=== PATIENT | female | born 1965 | race Caucasian/White ===

== ENCOUNTER 2018-04-13 06:39 | Day surgery (SDC) | payer MEDICAID ==
[2018-04-13] VITALS (7 sets, daily range): BP systolic 100–116; BP diastolic 59–75
[~2018-04-13] VITALS: Ht 156.2 cm; Wt 78.0 kg
[~2018-04-13 06:39] MED LIST: ALBU18HF2 INH; ATEN50TA PO; CYCL-1 PO; DOCUMENT DATE & TIME OF BETA-BLOCKER PO ONE; ERGO500014 PO; FLUT100D2 INH; GABA-532 PO; IBUP-1986 PO; LORA10TA7 PO; MINO100C66 PO; NORT25CA5 PO; OMEP20CA10 PO; QUET50TA PO; SERT100T PO; SIMV80TA2 PO; TRAZ-219 PO; albuterol 2.5 MG/3 ML nebule NEB ONE; ceFAZolin 1GM/D5W- ADD-VANTAGE 50 ML IV ONE; famotidine 20mg tablet PO ONE; ringers solution, lacted 1,000 ML IV SCH
[2018-04-13] MEDS ORDERED: LIDOcaine 1% (10mg/ml) 2ml vial ONE (07:48)
[2018-04-13 08:47] LABS: BASOPHILS # (AUTO) 0.1 X10'3 (0-0.2); EOSINOPHILS # (AUTO) 0.2 X10'3 (0-0.9); EOSINOPHILS % (AUTO) 3.3 % (0-6); LYMPHOCYTES # (AUTO) 1.9 X10'3 (1.1-4.8); LYMPHOCYTES % (AUTO) 29.4 % (21-51); MEAN CORPUSCULAR HEMOGLOBIN 29.4 PG (27.0-31.0); MEAN CORPUSCULAR HGB CONC 34.5 % (33.0-36.5); MEAN CORPUSCULAR VOLUME 85.2 FL (78-98); MEAN PLATELET VOLUME 9.5 FL (7.4-10.4); MONOCYTES # (AUTO) 0.4 X10'3 (0-0.9); MONOCYTES % (AUTO) 5.6 % (2-12); NEUTROPHILS # (AUTO) 3.9 X10'3 (1.8-7.7); NEUTROPHILS % (AUTO) 60.7 % (42-75); PRE OP HEMATOCRIT 38.7 % (35.0-45.0); PRE OP HEMOGLOBIN 13.3 g/dL (12.0-16.0); PRE OP PLATELET COUNT 198 X10'3 (140-440); RED BLOOD COUNT 4.54 X10'6 (4.20-5.60); RED CELL DISTRIBUTION WIDTH 15.1 % (11.5-14.5)
[2018-04-13 09:01] LABS: ALBUMIN 3.3 G/DL (3.4-5.0); ALBUMIN/GLOBULIN RATIO 0.9 (1.1-1.5); ALKALINE PHOSPHATASE 160 IU/L (46-116); BLOOD UREA NITROGEN 13 MG/DL (7-18); BUN/CREATININE RATIO 13.5 (6.6-38.0); CALCIUM 9.7 MG/DL (8.5-10.1); CHLORIDE 104 MMOL/L (99-107); CREATININE 0.96 MG/DL (0.40-0.90); PRE OP ALT 38 U/L (30-65); PRE OP ANION GAP 8 (8-16); PRE OP AST 30 U/L (10-37); PRE OP BILIRUB, TOTAL 0.3 MG/DL (0.0-1.0); PRE OP GLUCOSE 95 MG/DL (70-104); PRE OP POTASSIUM 4.2 MMOL/L (3.4-5.1); PRE OP SODIUM 138 MMOL/L (135-145); TOTAL CARBON DIOXIDE 26.4 MMOL/L (24-32); TOTAL PROTEIN 6.9 G/DL (6.4-8.2); eGFR 61 ML/MIN
[2018-04-13] MEDS ORDERED: LIDOcaine 0.5% (5mg/ml) 50ml vial ONE (10:05)
[2018-04-13] MEDS ORDERED: midazolam 2 mg/2 ml injection ONE (10:09)
[2018-04-13] MEDS ORDERED: fentaNYL/PF 50MCG/1 ML 2ML syringe ONE (10:09)
[2018-04-13] MEDS ORDERED: ringers solution, lacted 1,000 ML IV SCH (10:11)
[2018-04-13] MEDS ORDERED: proCHLORperazine 10 MG/2 ml inj IV PRN (10:15)
[2018-04-13] MEDS ORDERED: ondansetron/PF 4mg/2ml inj IV PRN (10:15)
[2018-04-13] MEDS ORDERED: morphine 4 MG/ML inj SYRINge IV PRN ×2 (10:15)
[2018-04-13] MEDS ORDERED: meperidine/PF 25mg/ml syringe IV PRN ×3 (10:15)
[2018-04-13] MEDS ORDERED: BUPIVAcaine/PF 2.5mg/ml (0.25%) 10ml vial ONE (10:17)
== END 2018-04-13 11:31 | disposition home or self-care (01) ==
LOC: PAS 06:39
PROVIDERS: ATTEND Orthopaedic Surgery Hand Surgery
DX: M65.341 Trigger finger, right ring finger (principal); K21.9 Gastro-esophageal reflux disease without esophagitis; G43.909 Migraine, unspecified, not intractable, without status migrainosus; G89.29 Other chronic pain; E78.00 Pure hypercholesterolemia, unspecified; J44.9 Chronic obstructive pulmonary disease, unspecified; F17.210 Nicotine dependence, cigarettes, uncomplicated; Z88.8 Allergy status to other drugs, medicaments and biological substances; Z98.890 Other specified postprocedural states
CPT/HCPCS: 26055; 36415; 80053; 85025; 93005; 94640; A6222; A6449; J0690; J2001; J2250; J3010; J3490; J7120

== ENCOUNTER 2025-03-11 18:54 | Emergency (ER) | payer MEDICAID ==
[~2025-03-11 18:54] MED LIST changes: -DOCUMENT DATE & TIME OF BETA-BLOCKER PO ONE; -OMEP20CA10 PO; +OMEP20CA15 PO; -TRAZ-219 PO; +TRAZ-256 PO; -albuterol 2.5 MG/3 ML nebule NEB ONE; -ceFAZolin 1GM/D5W- ADD-VANTAGE 50 ML IV ONE; -famotidine 20mg tablet PO ONE; -ringers solution, lacted 1,000 ML IV SCH
--- NOTE | 2025-03-11 19:51 | RADIOLOGY REPORT ---
EXAM: DI KNEE, COMP 4 VW MIN INDICATION: KNEE PAIN TECHNIQUE: 3 views of the right knee COMPARISON: None FINDINGS/IMPRESSION: No radiographic evidence of an acute osseous abnormality. There is no acute fracture, osseous malalignment, or aggressive focal osseous lesion. No knee joint effusion. Quadriceps insertional enthesophyte. Diffusely decreased bone mineral density.
--- NOTE | 2025-03-11 19:51 | RADIOLOGY REPORT ---
EXAM: DI HIP UNILATERAL 2 VIEWS INDICATION: HIP PAIN TECHNIQUE: 3 views of the left hip COMPARISON: None FINDINGS/IMPRESSION: No radiographic evidence of an acute osseous abnormality. There is no acute fracture, osseous malalignment, or aggressive focal osseous lesion. Mild bilateral superior medial hip joint space loss. Phleboliths in the pelvis.
--- NOTE | 2025-03-11 20:05 | Physician Documentation ---
History of Present Illness ~ Chief Complaint: Mechanical Fall Stated Complaint: WEAKNESS/LEG PAIN Time Seen by MD: 19:49 Primary Medical Doctor: [facility] Patient is seen today with complaints of pain of her left hip and left knee after sustaining a ground level fall in the ER lobby. Patient denies tripping and states her legs just buckled and she fell down. She denies any wrist pain or pain of her upper extremities. She has no other concern or complaint at this time Medication Reconciliation Allergies: Coded Allergies: hydrocodone bit (Verified Allergy, Intermediate, THROAT SWELLING, 01/17/10) Scheduled Albuterol Sulfate (Ventolin Hfa), 2 PUFFS INH Q4HPRN, (Reported) Atenolol (Atenolol), 1 TAB PO DAILY, (Reported) Ergocalciferol* (Vitamin D*), 1 CAP PO 2 WEEK, (Reported) Fluticasone Propionate (Flovent 100 Mcg Diskus), 1 PUFFS INH Q12H, (Reported) Gabapentin (Gabapentin), 1 CAP PO TID, (Reported) Loratadine (Loratadine), 1 TAB PO DAILY, (Reported) Minocycline Hcl (MINOCIN capsule), 100 MG PO HS, (Reported) Nortriptyline Hcl (Pamelor), 50 MG PO BID, (Reported) Omeprazole (Omeprazole), 2 CAP PO BID, (Reported) Quetiapine Fumarate (Seroquel), 1 TAB PO HS, (Reported) Sertraline Hcl (Zoloft), 1 TAB PO DAILY, (Reported) Simvastatin* (Zocor*), 1 TAB PO HS, (Reported) Trazodone HCl (Trazodone HCl), 1 TAB PO HS, (Reported) Scheduled PRN Cyclobenzaprine* (Cyclobenzaprine*), 1 TABLET PO TID PRN for muscle spasms, (Reported) Ibuprofen (Ibuprofen), 1 TAB PO Q8H PRN for pain, (Reported) Past Medical History Past Medical History: High Cholesterol, GERD Alcohol Use: None Drug Use: none Lives with: Spouse Lives In: Home Occupation: employed Physical Exam Vital Signs: Temperature: 97.9, Heart Rate: 67, Respiratory Rate: 16, BP: 164/77, Pulse Oximetry: 97 Oxygen Flow Rate: 0 Physical Exam General: Awake and Alert, no acute distress. HEENT: Conjunctiva pink, Sclera clear, Mucus Membranes moist. Neck: Supple without masses and tenderness. Resp: Unlabored. Lungs clear to auscultation bilaterally. Heart: Regular Rate and rhythm, normal S1 and S2 without murmur, rub or gallop. Musculoskeletal: Patient on exam has decreased range of motion of the left hip and knee due to pain. Patient is neurovascularly intact distally. Motor function intact distally. Extremities: No cyanosis,clubbing or edema. Skin: Warm and Dry. 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 X-ray of the left knee interpreted by myself today shows no sign of acute fracture, bones in anatomic alignment, joint space is well-maintained. DIAGNOSTIC RADIOLOGY Patient: SALENA PIERSON Medical Record: [id number] [facility] : 1965, Age: 59 Sex: Female Location: ER Patient Status: REG ER Service Date/Time: 03/11/251932 Ordering Physician: MIKHAIL SIFUENTES MD Exam: KNEE, COMP 4 VW MIN EXAM: DI KNEE, COMP 4 VW MIN INDICATION: KNEE PAIN TECHNIQUE: 3 views of the right knee COMPARISON: None FINDINGS/IMPRESSION: No radiographic evidence of an acute osseous abnormality. There is no acute fracture, osseous malalignment, or aggressive focal osseous lesion. No knee joint effusion. Quadriceps insertional enthesophyte. Diffusely decreased bone mineral density. Electronically Signed by:ALYSIA CHAUDHRY MD Date & Time: 03/11/251948 Dictated by: ALYSIA CHADUHRY MD Dictation date and time: 03/11/251924 Primary Care Provider: NO PRIMARY CARE PROVIDER cc: MIKHAIL SIFUENTES MD ~ DIAGNOSTIC RADIOLOGY Patient: SALENA PIERSON Medical Record: [id number] [facility] : 1965, Age: 59 Sex: Female Location: ER Patient Status: [facility] ER Service Date/Time: 03/11/251932 Ordering Physician: MIKHAIL SIFUENTES MD Exam: HIP UNILATERAL 2 VIEWS EXAM: DI HIP UNILATERAL 2 VIEWS INDICATION: HIP PAIN TECHNIQUE: 3 views of the left hip COMPARISON: None FINDINGS/IMPRESSION: No radiographic evidence of an acute osseous abnormality. There is no acute fracture, osseous malalignment, or aggressive focal osseous lesion. Mild bilateral superior medial hip joint space loss. Phleboliths in the pelvis. Electronically Signed by:ALYSIA CHAUDHRY MD Date & Time: 03/11/251947 Dictated by: ALYSIA CHAUDHRY MD Dictation date and time: 03/11/251924 Primary Care Provider: NO PRIMARY CARE PROVIDER cc: MIKHAIL SIFUENTES MD ~ Medical Decision Making Findings Patient is seen today with complaints of pain of her left hip and left knee after sustaining a ground level fall in the ER lobby. Patient denies tripping and states her legs just buckled and she fell down. She denies any wrist pain or pain of her upper extremities. She has no other concern or complaint at this time Patient did have x-rays taken of left hip and left knee that showed no sign of acute fracture or acute injury. Patient will follow up with primary care for further eval and treatment and likely referral to physical therapy for evalua tion and treatment. Return to ED with any worsening, concerning or changing symptoms. Departure Disposition: HOME / SELF CARE / HOMELESS Impression: Primary Impression: Knee pain Qualified Codes: M25.562 - Pain in left knee Additional Impressions: Fall Qualified Codes: W19.XXXA - Unspecified fall, initial encounter Hip pain Qualified Codes: M25.552 - Pain in left hip Condition: Stable Discharge Instructions: Fall Prevention in the Home, Adult, [id number] Additional Instructions: Patient did have x-rays taken of left hip and left knee that showed no sign of acute fracture or acute injury. Patient will follow up with primary care for further eval and treatment and likely referral to physical therapy for evaluation and treatment. Return to ED with any worsening, concerning or changing symptoms. Referrals: NO PRIMARY CARE PROVIDER (PCP) Signature Scribe Signature: No scribe Attestation: No scribe LESLEY GARAY PAC Mar 11, 2025 20:05
[2025-03-11 20:12] VITALS: BP 160/72; PULSE 65; RESP 18; TEMP 98.6; O2SAT 99
[2025-03-12] MEDS ORDERED: tranexamic acid 1gm/0.7% sal. 100 ML IV ONE (02:02)
== END 2025-03-11 20:13 | disposition home or self-care (01) ==
LOC: ER 18:54
DX: M25.562 Pain in left knee (principal); M25.552 Pain in left hip; E78.00 Pure hypercholesterolemia, unspecified; K21.9 Gastro-esophageal reflux disease without esophagitis; Z88.5 Allergy status to narcotic agent; Z79.899 Other long term (current) drug therapy; W18.30XA Fall on same level, unspecified, initial encounter; Y93.89 Activity, other specified; Y92.238 Other place in hospital as the place of occurrence of the external cause; Y99.8 Other external cause status
CPT/HCPCS: 73502; 73564; 99284